=== PATIENT | female | born 1960 | race Caucasian/White ===

== ENCOUNTER 2017-11-13 12:58 | Day surgery (SDC) | payer OTHER ==
[~2017-11-13 12:58] MED LIST: ATEN1TAB73
[2017-11-13 13:50] VITALS: BP 147/75; PULSE 94; RESP 16; TEMP 99.2; O2SAT 98
--- NOTE | 2017-11-13 14:27 | PD.RAD ---
Post US Procedure Prog Note Pre Procedure Diagnosis: (1) Thyroid nodule Post Procedure Diagnosis: (1) Thyroid nodule Procedure Date: Nov 13, 2017 Supervising Radiologist: Girma French Anesthesia: Local Plan of Activity Patient to Unit: ROPU Patient Condition: Good See PACS Report for procedural detail/treatment Biopsy Imaging Guidance: Ultrasound Side: Bilateral Biopsy Procedure: Thyroid Site: bilateral thyroid nodules. Specimen: Fine Needle Aspirate Additional Detail: 4 FNAs performed at each nodule. Plan to ROPU then discharge in 30 minutes. Girma French MD Nov 13, 2017 14:27
[2017-11-13 14:45] VITALS: BP 160/70; PULSE 89; RESP 20; TEMP 97.7; O2SAT 100
[2017-11-13 15:00] VITALS: BP 152/69; PULSE 84; RESP 18; O2SAT 98
--- NOTE | 2017-11-13 15:08 | RADRPT ---
EXAM DATE: 11/13/2017 2:51 PM EDT AGE/SEX: 57 years / Female INDICATIONS: Bilateral thyroid mass. CLINICAL DATA: This is the patient's initial encounter. Patient reports that signs and symptoms have been present for 1 month and indicates a pain score of 0/10. MEDICAL/SURGICAL HISTORY: . Thyroid masses. Mitral valve prolapse. Tachycardia. Ovarian cysts. Appendectomy. COMPARISON: [facility], US THYROID, 09/22/2017. . [facility]. US THYROID 2017-09-22 ORGAN: Bilateral Thyroid. SPECIMEN(S): Eight fine needle aspirate(s) submitted for pathologic evaluation. DEVICE(S): 22 gauge needle 25 gauge needle The possibility does exist that the tissue obtained will be non-diagnostic. If the sample is non-diag nostic, a repeat biopsy or surgical biopsy may need to be performed. TECHNIQUE: 1. Ultrasound guidance for needle biopsy. 2. Needle biopsy. 3. 4. . . The risks, benefits and alternatives to the procedure were explained and verbal and written consent w as obtained. The site was prepped in sterile fashion. Full sterile technique was used, including ca p, mask, sterile gloves and gown and a large sterile sheet. Hand hygiene and 2% chlorhexidine and/or betadine/alcohol prep was utilized per protocol for cutaneous antisepsis. The skin and subcutaneous tissues were infiltrated with local anesthetic solution. Sterile gel and sterile probe cover were u tilized for ultrasound guidance. With the patient on the ultrasound table, images were obtained. The hypoechoic nodule at the lower p ole of the right thyroid gland was localized for biopsy. Additionally, at the left upper pole there i s a mildly hypoechoic solid nodule measuring approximately 1.6 cm. Thyroid gland is very heterogeneou s without distinct margins on the reported nodules. A needle was advanced into each nodule and 4 samples were obtained from each nodule. The cytotechnolo gist was present to accept and repair the samples. The patient tolerated the procedure well and left the ultrasound suite in stable condition. CONCLUSION: Uncomplicated bilateral thyroid nodule fine-needle aspiration, as above. If any sample returns as non diagnostic, suggest 6 month follow-up ultrasound. Electronically signed by: Girma French MD 11/13/2017 3:07 PM EDT
[2017-11-13] MEDS ORDERED: LIDOCAINE HCL 1% 20 ML VIAL ONE (16:08)
== END 2017-11-13 15:24 | disposition home or self-care (01) ==
LOC: HRAD 12:58 → HRIP 13:11 → HRAD 15:24
PROVIDERS: ATTEND Nurse Practitioner Family
DX: E07.89 Other specified disorders of thyroid (principal); I34.1 Nonrheumatic mitral (valve) prolapse; R00.0 Tachycardia, unspecified; N83.209 Unspecified ovarian cyst, unspecified side
CPT/HCPCS: 10022; 76942; 88172; 88173